=== PATIENT | female | born 1975 | race Caucasian/White ===

== ENCOUNTER 2017-08-07 11:19 | Emergency (ER) | payer OTHER ==
[~2017-08-07] VITALS: Ht 162.6 cm; Wt 68.0 kg
[2017-08-07 11:46] VITALS: BP 139/72; PULSE 89; RESP 14; TEMP 97.9; O2SAT 96
[2017-08-07 12:32] LABS: BACTERIA, URINE FEW /hpf; BILIRUBIN, URINE NEG (NEG); BLOOD, URINE NEG (NEG); GLUCOSE,URINE NEG (NEG); HYALINE CAST, URINE 2 /lpf (RARE); KETONE, URINE NEG (NEG); MUCUS URINE FEW /lpf (OCC); NITRITE,URINE NEG (NEG); SQUAMOUS EPITHELIAL CELL URINE 8 /hpf (0-5); URINE COLOR YELLOW (YELLW/STRAW); URINE LEUKOCYTE ESTERASE NEG (NEG)
[2017-08-07 13:25] LABS: BASOPHIL # 0.1 TH/MM3 (0-0.2); BASOPHIL % 0.8 % (0.0-2.0); EOSINOPHIL # 0.1 TH/MM3 (0-0.4); EOSINOPHIL % 1.2 % (0.0-4.0); HEMATOCRIT 44.8 % (35.0-46.0); HEMOGLOBIN 15.1 GM/DL (11.6-15.3); LYMPH % 22.8 % (9.0-44.0); MEAN CELL VOLUME 89.1 FL (80.0-100.0); MEAN CORPUSCULAR HGB CONC 33.6 % (32.0-36.0); MEAN PLATELET VOLUME 8.5 FL (7.0-11.0); MONO % 5.7 % (0.0-8.0); MONOCYTE # 0.5 TH/MM3 (0-0.9); NEUT % 69.5 % (16.0-70.0); PLATELET COUNT 261 TH/MM3 (150-450); RED BLOOD COUNT 5.02 MIL/MM3 (4.00-5.30); RED CELL DISTRIBUTION WIDTH 13.2 % (11.6-17.2); WHITE BLOOD COUNT 8.6 TH/MM3 (4.0-11.0)
--- NOTE | 2017-08-07 13:27 | PD ---
Physical Exam Date Seen by Provider: Aug 07, 2017 Narrative Patient presents complaining with left suprapubic pain. She states that she gets this pain once a month. She states that she has been evaluated by her research assistant member but that the research assistant member did not examine her and told her that the pain was not gynecological. She has also been seen by table games dealer and colonoscopy which were apparently negative. She comes in to us with recurrence of his cyclical pain. Data Data Last Documented VS Vital Signs Date Time Temp Pulse Resp B/P (MAP) Pulse Ox O2 Delivery O2 Flow Rate FiO2 08/07/17 11:46 97.9 89 14 139/72 (94) 96 Orders Orders Complete Blood Count With Diff (08/07/17 11:48) Comprehensive Metabolic Panel (08/07/17 11:48) Urinalysis - C+S If Indicated (08/07/17 11:48) Ed Urine Pregnancytest Poc (08/07/17 11:48) Lipase (08/07/17 11:48) Us Pelvis Comp W Transvaginal (08/07/17 ) Labs Laboratory Tests Test 08/07/17 12:07 08/07/17 12:38 Urine Color YELLOW Urine Turbidity HAZY Urine pH 7.0 Urine Specific [place] 1.024 Urine Protein NEG mg/dL Urine Glucose (UA) NEG mg/dL Urine Ketones NEG mg/dL Urine Occult Blood NEG Urine Nitrite NEG Urine Bilirubin NEG Urine Urobilinogen LESS THAN 2.0 MG/DL Urine Leukocyte Esterase NEG Urine RBC 1 /hpf Urine WBC 1 /hpf Urine Squamous Epithelial Cells 8 /hpf Urine Bacteria FEW /hpf Urine Hyaline Casts 2 /lpf Urine Mucus FEW /lpf Microscopic Urinalysis Comment CULT NOT INDICATED White Blood Count 8.6 TH/MM3 Red Blood Count 5.02 MIL/MM3 Hemoglobin 15.1 GM/DL Hematocrit 44.8 % Mean Corpuscular Volume 89.1 FL Mean Corpuscular Hemoglobin 30.0 PG Mean Corpuscular Hemoglobin Concent 33.6 % Red Cell Distribution Width 13.2 % Platelet Count 261 TH/MM3 Mean Platelet Volume 8.5 FL Neutrophils (%) (Auto) 69.5 % Lymphocytes (%) (Auto) 22.8 % Monocytes (%) (Auto) 5.7 % Eosinophils (%) (Auto) 1.2 % Basophils (%) (Auto) 0.8 % Neutrophils # (Auto) 6.0 TH/MM3 Lymphocytes # (Auto) 2.0 TH/MM3 Monocytes # (Auto) 0.5 TH/MM3 Eosinophils # (Auto) 0.1 TH/MM3 Basophils # (Auto) 0.1 TH/MM3 CBC Comment DIFF FINAL Differential Comment MDM Supervised Visit with ABDIRAHMAN: Yes Narrative Course I, Dr. Hood, have reviewed the advance practice practitioner's documentation and am in agreement, met with the patient face to face, made the diagnosis, and the medical decision making was done by me. *My assessment and Findings: Patient is now resting comfortably on the stretcher. She had taken ibuprofen prior to presentation and states that it has helped her pain. Her abdomen is soft and seems to be nontender throughout. I have suggested a pelvic ultrasound. That has been ordered. Please see Roxanne De Leon NP's note for a more detailed H&P, final diagnosis and disposition Andreea Hood MD Aug 07, 2017 13:27
--- NOTE | 2017-08-07 13:47 | PD ---
HPI Chief Complaint: Abdominal Pain Time Seen by Provider: 13:06 Travel History International Travel<30 days: No Contact w/Intl Traveler<30days: No Traveled to known affect area: No History of Present Illness HPI Patient is a 42-year-old female presenting to emerge from for evaluation of groin pain. Patient reports that this pain occurs on a monthly basis. Radiates down the front of her left leg and around to her back. At its worst pain is 8 out of 10, caused her to feel nauseated. She took 600 mg of ibuprofen at 1015 this morning, it improved her pain score to 3 out of 10. Patient was evaluated by her primary care provider, referred to GI and gynecology. 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 Patient reports that she had a uterine ablation 3 years ago and is uncertain where she would be in her menstrual cycle at this point. She denies any injury or trauma, she denies any swelling or edema to her left leg, she denies any dysuria, abdominal pain, vaginal discharge. [facility] Past Medical History Medical History: Denies Significant Hx Hx Anticoagulant Therapy: No ?: Not LMP: HAD AN ABLATION Past Surgical History Surgical History: No Previous Surgery Social History Alcohol Use: No Tobacco Use: No Substance Use: No Allergies-Medications (Allergen,Severity, Reaction): Coded Allergies: No Known Allergies (Unverified , 09/11/13) Review of Systems Except as stated in HPI: all other systems reviewed are Neg Musculoskeletal: Positive: Myalgias, Pain Physical Exam Narrative GENERAL: Well-developed, well-nourished, alert female. Presenting in no acute distress. SKIN: Warm and dry. HEAD: Atraumatic. Normocephalic. EYES: Pupils equal and round. No scleral icterus. No injection or drainage. ENT: No nasal bleeding or discharge. Mucous membranes pink and moist. NECK: Trachea midline. No JVD. CARDIOVASCULAR: Regular rate and rhythm. RESPIRATORY: No accessory muscle use. Clear to auscultation. Breath sounds equal bilaterally. GASTROINTESTINAL: Abdomen soft, non-tender, nondistended. Hepatic and splenic margins not palpable. MUSCULOSKELETAL: Extremities without clubbing, cyanosis, or edema. No obvious deformities. No pain to palpation in left groin, no lumps or masses noted. NEUROLOGICAL: Awake and alert. No obvious cranial nerve deficits. Motor grossly within normal limits. Five out of 5 muscle strength in the arms and legs. Normal speech. PSYCHIATRIC: Appropriate mood and affect; insight and judgment normal. Data Data Last Documented VS Vital Signs Date Time Temp Pulse Resp B/P (MAP) Pulse Ox O2 Delivery O2 Flow Rate FiO2 08/07/17 11:46 97.9 89 14 139/72 (94) 96 Orders Orders Complete Blood Count With Diff (08/07/17 11:48) Comprehensive Metabolic Panel (08/07/17 11:48) Urinalysis - C+S If Indicated (08/07/17 11:48) Ed Urine Pregnancytest Poc (08/07/17 11:48) Lipase (08/07/17 11:48) Us Pelvis Comp W Transvaginal (08/07/17 ) Labs Laboratory Tests Test 08/07/17 12:07 08/07/17 12:38 Urine Color YELLOW Urine Turbidity HAZY Urine pH 7.0 Urine Specific [place] 1.024 Urine Protein NEG mg/dL Urine Glucose (UA) NEG mg/dL Urine Ketones NEG mg/dL Urine Occult Blood NEG Urine Nitrite NEG Urine Bilirubin NEG Urine Urobilinogen LESS THAN 2.0 MG/DL Urine Leukocyte Esterase NEG Urine RBC 1 /hpf Urine WBC 1 /hpf Urine Squamous Epithelial Cells 8 /hpf Urine Bacteria FEW /hpf Urine Hyaline Casts 2 /lpf Urine Mucus FEW /lpf Microscopic Urinalysis Comment CULT NOT INDICATED White Blood Count 8.6 TH/MM3 Red Blood Count 5.02 MIL/MM3 Hemoglobin 15.1 GM/DL Hematocrit 44.8 % Mean Corpuscular Volume 89.1 FL Mean Corpuscular Hemoglobin 30.0 PG Mean Corpuscular Hemoglobin Concent 33.6 % Red Cell Distribution Width 13.2 % Platelet Count 261 TH/MM3 Mean Platelet Volume 8.5 FL Neutrophils (%) (Auto) 69.5 % Lymphocytes (%) (Auto) 22.8 % Monocytes (%) (Auto) 5.7 % Eosinophils (%) (Auto) 1.2 % Basophils (%) (Auto) 0.8 % Neutrophils # (Auto) 6.0 TH/MM3 Lymphocytes # (Auto) 2.0 TH/MM3 Monocytes # (Auto) 0.5 TH/MM3 Eosinophils # (Auto) 0.1 TH/MM3 Basophils # (Auto) 0.1 TH/MM3 CBC Comment DIFF FINAL Differential Comment Blood Urea Nitrogen 16 MG/DL Creatinine 0.70 MG/DL Random Glucose 76 MG/DL Total Protein 7.1 GM/DL Albumin 4.1 GM/DL Calcium Level 9.0 MG/DL Alkaline Phosphatase 50 U/L Aspartate Amino Transf (AST/SGOT) 13 U/L Alanine Aminotransferase (ALT/SGPT) 20 U/L Total Bilirubin 0.5 MG/DL Sodium Level 140 MEQ/L Potassium Level 3.9 MEQ/L Chloride Level 108 MEQ/L Carbon Dioxide Level 22.5 MEQ/L Anion Gap 10 MEQ/L Estimat Glomerular Filtration Rate 92 ML/MIN Lipase 95 U/L [facility] Medical Decision Making Medical Screen Exam Complete: Yes Emergency Medical Condition: Yes Interpretation(s) Vital Signs Date Time Temp Pulse Resp B/P (MAP) Pulse Ox O2 Delivery O2 Flow Rate FiO2 08/07/17 11:46 97.9 89 14 139/72 (94) 96 Differential Diagnosis Muscle strain versus muscle spasm versus ovarian cyst versus other Narrative Course Patient is well-appearing 42-year-old female presenting for evaluation of left groin pain that appears to be occurring on a monthly basis. Patient's vital signs are stable, labs were ordered while patient was in triage. Urinalysis unremarkable. CBC with no acute findings. Chemistry with no acute abnormality. Ultrasound shows bilateral ovarian cysts as well as uterine leiomyoma. Discussed findings with patient, her was at bedside. 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 She will be given a copy of her ultrasound report. Patient was encouraged to take ibuprofen as needed and as directed for pain, she can also try warm compresses. She was strongly encouraged to return to emergency department for any new or worsening symptoms. Patient verbalized understanding of instructions. Patient stable for discharge. 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
[2017-08-07 13:49] LABS: ALBUMIN 4.1 GM/DL (3.4-5.0); AST (GOT) 13 U/L (15-37); BICARBONATE 22.5 MEQ/L (21.0-32.0); BLOOD UREA NITROGEN 16 MG/DL (7-18); CHLORIDE 108 MEQ/L (98-107); GLOMERULAR FILTRATION RATE 92 ML/MIN (>89); GLUCOSE,RANDOM 76 MG/DL (74-106); SODIUM (NA) 140 MEQ/L (136-145)
[2017-08-07 13:50] LABS: ALT (GPT) 20 U/L (10-53)
[2017-08-07 13:53] LABS: ALKALINE PHOSPHATASE 50 U/L (45-117); TOTAL BILIRUBIN ADULT 0.5 MG/DL (0.2-1.0); TOTAL PROTEIN 7.1 GM/DL (6.4-8.2)
--- NOTE | 2017-08-07 15:01 | RADRPT ---
EXAM DATE: 08/07/2017 2:56 PM EDT AGE/SEX: 42 years / Female INDICATIONS: Left pelvic pain. CLINICAL DATA: This is the patient's initial encounter. Patient reports that signs and symptoms have been present for 4 - 6 months and indicates a pain score of 5/10. MEDICAL/SURGICAL HISTORY: . Pelvic pain. . Uterine ablation. COMPARISON: No prior exams available for comparison. MEASUREMENTS: Uterus:__8.1 x 6.1 x 5.2 cm Endometrial Stripe:__4 mm Right Ovary:__ 2.6 x 2.1 x 1.4 cm Left Ovary:__ 3.1 x 2.5 x 2.1 cm FINDINGS: Uterus: The uterus is retroverted. A 1.5 cm solid myometrial mass is identified in the fundus. Small amount of fluid is identified within the endometrial canal. Right Ovary: An 11 mm cyst is identified centrally within the right ovary. Ovaries otherwise unremar kable. Left Ovary: A 12 mm cyst is identified within the left ovary. The ovaries otherwise unremarkable. Other: No free fluid. CONCLUSION: 1. Retroverted uterus containing a small myometrial mass in the fundus characteristic of a leiomyoma . 2. Small bilateral ovarian cyst. 3. No other significant abnormality. Electronically signed by: Gibson Benjamin MD 08/07/2017 3:00 PM EDT
[2017-08-07] MEDS ORDERED: IBUP1TAB7 PO (15:48)
[2017-08-07 16:12] VITALS: BP 126/68
== END 2017-08-07 16:13 | disposition home or self-care (01) ==
LOC: NEPD 11:19
DX: N83.201 Unspecified ovarian cyst, right side (principal); N83.202 Unspecified ovarian cyst, left side; D25.9 Leiomyoma of uterus, unspecified; R10.2 Pelvic and perineal pain
CPT/HCPCS: 76830; 76856; 80053; 81001; 83690; 84703; 85025; 99284